=== PATIENT | female | born 1990 | race Caucasian/White ===

== ENCOUNTER 2019-09-03 10:10 | Emergency (ER) | payer BC ==
[~2019-09-03] VITALS: Ht 157.5 cm; Wt 53.1 kg
[2019-09-03] MEDS ORDERED: SUPER THERAVIT1 EACH PO (10:26)
[2019-09-03 12:00] LABS: BE -1.2 mmol/L (-2 to +3); PCO2 34.9 mmHg (35.0-45.0); PO2 96.1 mmHg (75.0-100.0); pH 7.428 (7.340-7.450)
[2019-09-03 12:03] LABS: ABSOLUTE EOSINOPHILS 0.1 thou/uL (0.0-0.7); ABSOLUTE MONOCYTES 0.4 thou/uL (0.0-1.2); ABSOLUTE NEUTROPHILS 2.7 thou/uL (1.6-8.1); BASOPHILS 0.7 %; EOSINOPHILS 1.3 %; HEMATOCRIT 37.5 % (37.0-47.0); HEMOGLOBIN 13.1 gm/dL (12.0-15.0); LYMPHOCYTES 23.6 %; MCV 91.5 fL (80.0-100.0); MONOCYTES 10.3 %; MPV 8.4 fl. (7.2-11.1); NUCLEATED RBCS 0 /100WBC; PLATELET COUNT* 200 thou/uL (150-400); POLYS 64.1 %; RDW-CV 12.2 % (10.5-14.5); WBC 4.2 thou/uL (4.0-11.0)
[2019-09-03 12:03] LABS: URINE BILIRUBIN NEGATIVE (Negative); URINE BLOOD TRACE (Negative); URINE CLARITY CLEAR; URINE COLOR YELLOW; URINE GLUCOSE-RANDOM NEGATIVE (Negative); URINE KETONES NEGATIVE (Negative); URINE LEUKOCYTES-REFLEX NEGATIVE (Negative); URINE NITRITE-REFLEX NEGATIVE (Negative); URINE PROTEIN NEGATIVE (Negative); URINE UROBILINOGEN 0.2 E.U./dl (0.2-1.0)
[2019-09-03 12:12] LABS: CALCIUM 8.2 mg/dL (8.5-10.1); CREATININE 0.9 mg/dL (0.6-1.3); POTASSIUM 4.2 mmol/L (3.5-5.1)
[2019-09-03 12:16] LABS: INR 1.1
[2019-09-03 12:17] LABS: ALBUMIN 4.2 g/dL (3.4-5.0); TOTAL BILIRUBIN 0.3 mg/dL (<0.1-1.0); TOTAL PROTEIN 7.1 g/dL (6.4-8.2)
[2019-09-03 13:28] VITALS: BP 105/67
--- NOTE | 2019-09-03 16:02 | EKG ---
[place] [address] ELECTROCARDIOGRAM REPORT Name: KEVIN HERNANDEZ Room: [facility]#: [id number] Admission: 09/03/19 Attend Phys: Discharge: 09/03/19 Date of : 86 Date of Service: 09/03/19 1017 Report #: [id number] THIS REPORT FOR: //name// [facility] ED Test Date: 2019-09-03 Test Time: 10:17:49 Pat Name: KEVIN HERNANDEZ Department: Room: Gender: F Production Associate: : [id number] Requested By: Klesey Herron Order Number: [id number] Nayeli MD: Silviano Pierson Measurements Intervals [place] Rate: 70 P: 76 TN: 113 QRS: 89 QRSD: 98 T: 51 QT: 401 QTc: 433 Interpretive Statements Sinus rhythm Borderline short [place] interval Probable left atrial enlargement Baseline wander in lead(s) V1,V2 No previous ECG available for comparison Electronically Signed On 09-03-2019 16:02:44 CDT by Silviano Pierson [email or web address] <ELECTRONICALLY SIGNED> By: Silviano Pierson MD, [facility] 09/03/19 1602 1017 1017 Silviano Pierson MD, [facility] /EPI
== END 2019-09-03 13:29 | disposition home or self-care (01) ==
LOC: M.ERS 10:10 → EDBD 10:10 → M.ERS 13:29
PROVIDERS: Personal Emergency Response Attendant
DX: R07.89 Other chest pain (principal); R53.83 Other fatigue; Z20.828 Contact with and (suspected) exposure to other viral communicable diseases